=== PATIENT | female | born 1985 | race Caucasian/White ===

== ENCOUNTER 2023-01-20 01:51 | Day surgery (SDC) | payer OTHER, SELFPAY ==
[2023-01-18 10:43] VITALS: BMI 31.1
--- NOTE | 2023-01-18 10:47 | PC.NURSE ---
Report to the Outpatient Waiting Room, entrance under the green pavilion located off [facility], at time 1400 on date 01/20/23. Planned Procedure Time: 1600. Time changes happen often and if your time is changed the preop area will call you the afternoon before. - You and your visitor will be asked to self-screen and do not enter if you have any COVID symptoms. - Only one visitor is requested with a max of two and NO children visitors are allowed at this time. - The patient visitor may be requested to leave or wait in car when not with patient due to distancing restrictions. - A mask is optional within the hospital at this time. Patients may have clear liquids (water, carbonated beverages, clear teas, apple juice) until 3 hours prior to surgery with a maximum of 20 ounces. - No food from midnight until time of surgery Take the following medications with a SIP of water the morning of surgery: SPRYCEL DO NOT STOP ANY OF YOUR OTHER PRESCRIPTION MEDICATIONS PRIOR TO SURGERY?EXCEPT THE FOLLOWING Medications to discontinue per physician: N/A Date to take last dose: N/A Please no make-up, nail czech, hairspray, perfume, deodorant, or body powder the day of surgery. No jewelry (including any body piercings) or valuables the day of surgery, leave them at home. Please take a shower or bath the night before, or the morning of, surgery with an antibacterial soap. Wear comfortable, loose fitting clothing. - Jewelry must be removed prior to entering the operating room. Rings and piercings that are not removed may be cut off. - The hospital will not accept responsibility for valuables. - Please leave all valuables, including medications, at home the day of surgery. If you are going home after surgery, a licensed taxi truck driver must drive you home. - NO public transportation without another adult if you receive anesthesia. - We recommend that an adult stay with you for 24 hours following discharge. - We also recommend that you do not drive, make important decision, drink alcoholic beverages, or take any drugs that were not prescribed by your health care provider for at least 24 hours after your discharge time. Follow any additional instructions given to you from your surgeon. If you or anyone in your household have experienced Covid symptoms in the past week, please notify your surgeon or the nurse liaison at the phone number below for possible testing. Telephone instructions given to PT - DANIELA CEE and asked if any additional questions and then verbalized understanding. Patient advised to call surgeon office or pre surgery nurse liaison [phone] if any additional questions.
--- NOTE | 2023-01-19 07:48 | P.HP_ITS ---
H&P: HPI History of Present Illness Date/Time: 01/19/23 07:48 Chief Complaint: 1st trimester missed A/B Narrative: is a 37-year-old female with first-trimester missed A/B. She underwent ultrasound which showed her to be 4 weeks behind with a 7 week size sac and no heart tones. She was given options of watchful waiting your following with suction D and C and decided upon the latter. Risks and benefits were reviewed in full REPLACED BY [facility] Social History Social History Smoking status: Never smoker Alcohol intake: never Substance use: never Substance use type: does not use Living arrangements: alone Spiritual care concerns: No Meds Home Medications and Allergies Home Medications Medication Instructions Recorded Confirmed Type dasatinib 100 mg tablet (Sprycel) 100 mg PO DAILY 01/18/23 01/18/23 History Allergies Allergy/AdvReac Type Severity Reaction Status Date / Time No Known Allergies Allergy Mild Unverified 01/18/23 10:42 Exam Const: General: cooperative, healthy appearing and comfortable Nutritional Appearance: average body habitus Orientation/consciousness: oriented to person, oriented to place and oriented to time HENMT: Head: normal to inspection Resp: Effort & Inspection: normal respiratory effort Cardio: Rate: regular rate Rhythm: regular rhythm Heart sounds: S1 normal heart sound present and S2 normal heart sound present GI: Inspection: normal to inspection : External Female Exam: normal external appearance Speculum Exam - Vagina: normal appearance of the vagina Bimanual exam- vagina & uterus: enlarged Bimanual Exam- Adnexa, other: normal adnexae Assessment and Plan Assessment and plan (1) Missed with demise before 20 completed weeks of gestation: Code(s): O02.1 - Missed Status: Acute Plan suction dilatation curettage
--- NOTE | 2023-01-20 06:26 | WPDHPUPDATE1 ---
History and Physical Update Update Date/Time: 01/20/23 06:26 History and Physical has been reviewed, including an updated exam of the patient. There are NO changes in the patient's condition. Risks, benefits, and alternatives have been discussed and questions answered. Patient agrees to proceed with procedure.
[2023-01-20 10:50] VITALS: BP 121/72; PULSE 68; RESP 18; TEMP 36.6; O2SAT 100
[2023-01-20] MEDS: LACTATED RINGERS 1,000 ML 30 ML IV CONT (11:19)
[2023-01-20] MEDS: ACETAMINOPHEN 500 MG TABLET 1000 MG PO (11:21)
[2023-01-20 11:24] LABS: Hematocrit 39.8 % (37.0-47.0); Hemoglobin 12.7 g/dL (12.0-15.0)
--- NOTE | 2023-01-20 11:59 | P.PNAN_ITS ---
Anes - Initial Pre Proc Eval Procedure: Operation Date: 01/20/23 13:00 Proposed Procedures p Suction Dilation and Curettage - Uday Eden MD Date/Time: 01/20/23 11:59 Surgeon: Uday Eden MD Pre Op Diagnosis: missed ab Patient Data Age: 37 Gender: F Height: 1.73 m Weight: 96.7 kg Last Vital Signs Temp 36.6 C 01/20/23 10:50 Pulse 68 01/20/23 10:50 Resp 18 01/20/23 10:50 BP 121/72 01/20/23 10:50 Pulse Ox 100 01/20/23 10:50 O2 Del Method Room Air 01/20/23 10:50 Allergies Allergy/AdvReac Type Severity Reaction Status Date / Time No Known Allergies Allergy Mild Unverified 01/20/23 10:57 Home Medications Medication Instructions Recorded Confirmed Type dasatinib 100 mg tablet (Sprycel) 100 mg PO DAILY 01/18/23 01/20/23 History hydrocodone 5 mg-acetaminophen 325 1 tablet PO Q4H PRN pain #14 tabs 01/20/23 Rx mg tablet Laboratory Tests 01/20/23 11:10 Hgb 12.7 g/dL g/dL (12.0-15.0) Hct 39.8 % % (37.0-47.0) Patient hx anesthesia problems: none Family hx anesthesia problems: none Results Review: All pre-operative results and documents have been reviewed as part of the pre- operative evaluation. [facility] Past Medical History Medical History (Updated 01/20/23 @ 11:59 by Uday Hinojosa MD) CML (chronic myelocytic leukemia) Social History Social History Smoking status: Never smoker Alcohol intake: never Substance use: never Substance use type: does not use Living arrangements: alone Spiritual care concerns: No Anes - Eval Final PreProcedure Day of Procedure 01/20/23 11:59 Patient weight: overweight Heart: regular rate and rhythm Lungs: clear to auscultation Airway: Mallampati scale class II Neurological: alert and oriented Last oral intake: >/= 8 hours ASA classification: II Emergent: no Anesthetic plan: proceed Anesthesia type and monitoring: general GIVS and standard monitoring Results Review: All pre-operative results and documents have been reviewed as part of the pre- operative evaluation. Informed Consent: The patient's anesthetic plan and its attendant risks and benefits were discussed with the patient/family/POA. Questions were solicited and answers provided to the satisfaction of the patient/family/POA.
[2023-01-20] MEDS: LIDOCAINE 1% BUFFERED WITH 8.4% SODIUM BICARB 1 ML SYRINGE 10 ML INFILTRATE (12:47)
--- NOTE | 2023-01-20 12:50 | W.PM.PROC2 ---
Procedure Note - Detailed Date of Procedure 01/20/23 Pre-op Diagnosis missed ab Post-op Diagnosis Same Procedure Performed Suction dilatation curettage Surgeon Uday Eden MD Anesthesia MAC and Local Indications this is a 37-year-old female with missed A/B 1st trimester Findings uterus sounded 9cm. Tissue consistent with products conception Description of Procedure patient was prepped draped in the normal sterile fashion placed in dorsal lithotomy position. Under excellent IV sedation weighted speculum placed in posterior fornix vagina. Anterior lip of the cervix grasped with single-tooth tenaculum. 2.5cc 1% xylocaine anesthesia placed at 2, 4, 8, 10:00 a.m. of the cervix. Uterus sounded to 9cm. Serial dilatation with fragmented dilators performed followed by passes the 9. Suction curette. Moderate to large amount of tissue was removed. When a good grating sound was heard, the instruments were withdrawn. Patient went recovery in satisfactory condition. All sponge, needle, instrument counts were correct. She did not require RhoGAM she is Rh positive Estimated Blood Loss 25 Drains No Packing No Pathology Yes Complications No immediate complications Condition Stable
[2023-01-20 12:59] VITALS: BP 90/51; PULSE 74; RESP 16; O2SAT 98
[2023-01-20 13:25] VITALS: BP 98/64; PULSE 69; RESP 16; O2SAT 98
[2023-01-20 13:51] VITALS: BP 88/54; PULSE 62; RESP 16
[2023-01-20 14:15] VITALS: BP 89/52; PULSE 66; RESP 16
== END 2023-01-20 14:30 | disposition home or self-care (01) ==
PROVIDERS: PCP Physician Assistant; Visit Provider Obstetrics & Gynecology
PROC: (CPT 59820; principal; 2023-01-20 13:00)
DX: O02.1 Missed abortion (principal); C91.10 Chronic lymphocytic leukemia of B-cell type not having achieved remission; Z3A.00 Weeks of gestation of pregnancy not specified
CPT/HCPCS: 59820; 36415; 85014; 85018; 85461; 86850; 86900; 86901; 88305; A9270; J2250; J2590; J2704; J3010; J7120

== ENCOUNTER 2024-08-07 00:47 | Day surgery (SDC) | payer OTHER, SELFPAY ==
[2024-08-06 08:27] VITALS: BMI 33.5
--- NOTE | 2024-08-06 08:32 | PC.NURSE ---
Report to the Outpatient Waiting Room, entrance under the green pavilion located off [facility], at time _0800_ on date _[id number]_. Planned Procedure Time: _1000_.? Time changes happen often and if your time is changed the preop area will call you the afternoon before. - You and your visitor will be asked to self-screen and do not enter if you have any COVID symptoms. Please call surgeon if you need to reschedule. - A mask is optional within the hospital at this time. Patients may have clear liquids (water, carbonated beverages, clear teas, apple juice) until 3 hours prior to surgery with a maximum of 20 ounces. - No food from midnight until time of surgery and no smoking Take only the following medications with a SIP of water on the morning of surgery: __Sprycel DO NOT STOP ANY OF YOUR OTHER PRESCRIPTION MEDICATIONS PRIOR TO SURGERY EXCEPT THE FOLLOWING Medications to discontinue per physician ____None Please no make-up, nail turkish, hairspray, perfume, deodorant, or body powder the day of surgery.? No jewelry (including any body piercings) or valuables the day of surgery, leave them at home.? Please take a shower or bath the night before, or the morning of, surgery with an antibacterial soap.? Wear comfortable, loose fitting clothing.? - Jewelry must be removed prior to entering the operating room.? Rings and piercings that are not removed may be cut off. - The hospital will not accept responsibility for valuables.? - Please leave all valuables, including medications, at home the day of surgery. If you are going home after surgery, a licensed hog driver must drive you home.? - NO public transportation without another adult if you receive anesthesia. - We recommend that an adult stay with you for 24 hours following discharge. - We also recommend that you do not drive, make important decision, drink alcoholic beverages, or take any drugs that were not prescribed by your health care provider for at least 24 hours after your discharge time. Follow any additional instructions given to you from your surgeon. Telephone instructions given to __Alexandra_and asked if any additional questions and then verbalized understanding. Patient advised to call surgeon office or pre surgery nurse liaison [phone] if any additional questions.
--- NOTE | 2024-08-06 16:01 | P.HP_ITS ---
H&P: HPI History of Present Illness Date/Time: 08/06/24 16:01 Chief Complaint: First trimester missed A/B Narrative: 38-year-old 2 para 0 in the 1st trimester with a missed A/B. This is her 2nd. Serial ultrasound showed no growth and no heartbeat. Risks and benefits reviewed [facility] Past Medical History Medical History CML (chronic myelocytic leukemia) Social History Social History Smoking status: Never smoker Alcohol intake: current Substance use: never Substance use type: does not use Living arrangements: with family Spiritual care concerns: No Meds Home Medications and Allergies Home Medications Medication Instructions Recorded Confirmed Type dasatinib 100 mg tablet (Sprycel) 100 mg PO DAILY 01/18/23 08/06/24 History Allergies Allergy/AdvReac Type Severity Reaction Status Date / Time No Known Allergies Allergy Mild Unverified 08/06/24 08:26 Exam Const: General: cooperative, healthy appearing and comfortable Nutritional Appearance: average body habitus Orientation/consciousness: oriented to person, oriented to place and oriented to time HENMT: Head: normal to inspection Resp: Effort & Inspection: normal respiratory effort Cardio: Rate: regular rate Rhythm: regular rhythm Heart sounds: S1 normal heart sound present and S2 normal heart sound present GI: Inspection: normal to inspection : External Female Exam: normal external appearance Speculum Exam - Vagina: normal appearance of the vagina Speculum Exam - Cervix: normal appearance of the cervix Bimanual exam- vagina & uterus: enlarged Bimanual Exam- Adnexa, other: normal adnexae Assessment and Plan Assessment and plan (1) Missed with demise before 20 completed weeks of gestation: Code(s): O02.1 - Missed Status: Acute Plan suction dilatation and curettage
--- NOTE | 2024-08-07 07:07 | WPDHPUPDATE1 ---
History and Physical Update Update Date/Time: 08/07/24 07:07 History and Physical has been reviewed, including an updated exam of the patient. There are NO changes in the patient's condition. Risks, benefits, and alternatives have been discussed and questions answered. Patient agrees to proceed with procedure.
[2024-08-07] MEDS: LACTATED RINGERS 1,000 ML 30 ML IV CONT (08:30)
[2024-08-07 09:08] LABS: Hematocrit 42.1 % (37.0-47.0); Hemoglobin 13.8 g/dL (12.0-15.0)
[2024-08-07] MEDS: ACETAMINOPHEN 500 MG TABLET 1000 MG PO (09:23)
--- NOTE | 2024-08-07 09:48 | P.PNAN_ITS ---
Anes - Initial Pre Proc Eval Procedure: Operation Date: 08/07/24 10:00 Proposed Procedures p Suction Dilation and Curettage - Uday Eden MD Date/Time: 08/07/24 09:48 Surgeon: Uday Eden MD Pre Op Diagnosis: missed ab Patient Data Age: 38 Gender: F Height: 1.73 m Weight: 100 kg Allergies Allergy/AdvReac Type Severity Reaction Status Date / Time No Known Allergies Allergy Mild Unverified 08/06/24 08:26 Home Medications Medication Instructions Recorded Confirmed Type dasatinib 100 mg tablet (Sprycel) 100 mg PO DAILY 01/18/23 08/06/24 History hydrocodone 5 mg-acetaminophen 325 1 tablet PO Q4H PRN pain #14 tabs 08/07/24 Rx mg tablet Laboratory Tests 08/07/24 08:56 Hgb 13.8 g/dL (12.0-15.0) Hct 42.1 % (37.0-47.0) Blood Type Pending Antibody Screen Pending Doses of RhIg Required Pending Patient hx anesthesia problems: none Family hx anesthesia problems: none Results Review: All pre-operative results and documents have been reviewed as part of the pre- operative evaluation. [facility] Past Medical History Medical History (Updated 08/07/24 @ 09:50 by Uday Hinojosa MD) CML (chronic myelocytic leukemia) Obesity Social History Social History Smoking status: Never smoker Alcohol intake: current Substance use: never Substance use type: does not use Living arrangements: with family Spiritual care concerns: No Anes - Eval Final PreProcedure Day of Procedure 08/07/24 09:48 Patient weight: obese Heart: regular rate and rhythm Lungs: clear to auscultation Airway: Mallampati scale class II Neurological: alert and oriented Last oral intake: >/= 8 hours ASA classification: III Emergent: no Anesthetic plan: proceed Anesthesia type and monitoring: general GIVS and standard monitoring Results Review: All pre-operative results and documents have been reviewed as part of the pre- operative evaluation. Informed Consent: The patient's anesthetic plan and its attendant risks and benefits were discussed with the patient/family/POA. Questions were solicited and answers provided to the satisfaction of the patient/family/POA.
[2024-08-07] MEDS: LIDOCAINE HCL 1% LOCAL INJ 10 ML VIAL INFILTRATE (10:11)
--- NOTE | 2024-08-07 10:18 | W.PM.PROC2 ---
Procedure Note - Detailed Date of Procedure 08/07/24 Pre-op Diagnosis missed ab Post-op Diagnosis Same Procedure Performed Suction dilatation curettage Surgeon Uday Eden MD Anesthesia MAC and Local Indications a 38-year-old female with missed A/B in the 1st trimester Findings uterus sounded to 10cm. Uterus retroverted tissue consistent products of conception present Description of Procedure patient was prepped draped sterile fashion placed in dorsal position. IV sedation weighted speculum placed in posterior fornix of vagina. Anterior lip of the cervix grasped with single-tooth tenaculum. The uterus was sounded to 10cm and noted be retroverted. Serial dilatation with fragmented dilators performed followed by passage of the 10. Suction curette. A moderate to small amount of tissue was removed. When a good grating sound was heard the instruments were withdrawn. The patient was awakened and went to recovery in satisfactory condition. All sponge, needle, instrument counts were correct. There were no immediate complications Estimated Blood Loss 25 Drains No Packing No Pathology Yes Complications No immediate complications Condition Stable Disposition PACU
[2024-08-07 10:20] VITALS: BP 105/60; PULSE 56; RESP 16; O2SAT 97
[2024-08-07 10:45] VITALS: BP 102/59; PULSE 56; RESP 16; O2SAT 95
[2024-08-07 11:00] VITALS: BP 106/64; PULSE 52; RESP 16
[2024-08-07 11:22] VITALS: BP 106/61; PULSE 52; RESP 16
== END 2024-08-07 11:30 | disposition home or self-care (01) ==
PROVIDERS: PCP Physician Assistant; Visit Provider Obstetrics & Gynecology
PROC: (CPT 59820; principal; 2024-08-07 10:00)
DX: O02.1 Missed abortion (principal); Z79.891 Long term (current) use of opiate analgesic; Z85.6 Personal history of leukemia
CPT/HCPCS: 59820; 36415; 85014; 85018; 85461; 86850; 86900; 86901; 88305; A9270; J1100; J1885; J2003; J2250; J2405; J2704; J3010; J7120